=== PATIENT | female | born 1995 | race Caucasian/White ===

== ENCOUNTER 2017-08-23 18:36 | Emergency (ER) | payer MEDICAID, OTHER ==
[2017-08-23 19:53] LABS: URINE BLOOD (Dip) POC 2+ (NEGATIVE); URINE GLUCOSE (Dip) POC Negative (NEGATIVE); URINE KETONES (Dip) POC Trace (NEGATIVE); URINE LEUKOCYTE EST (Dip) POC Negative (NEGATIVE); URINE NITRITE (Dip) POC Negative (NEGATIVE); URINE TOTAL PROTEIN POC Negative (NEGATIVE)
[2017-08-23] MEDS: LIDOCAINE/MYLANTA 40 ML BTL PO (19:59)
[2017-08-23] MEDS: KETOROLAC 30 MG INJ IV (19:59)
[2017-08-23] MEDS: FAMOTIDINE 20 MG TAB PO (19:59)
== END 2017-08-23 20:46 | disposition home or self-care (01) ==
LOC: FTE 18:36
DX: R10.13 Epigastric pain (principal)
CPT/HCPCS: 81003; 81025; 96374; 99284-25